=== PATIENT | male | born 1975 | race Two or more races ===

== ENCOUNTER 2020-04-19 15:59 | Emergency (ER) | payer OTHER ==
[~2020-04-19] VITALS: Ht 182.9 cm; Wt 91.2 kg
[2020-04-19 16:20] VITALS: BP 164/95
[2020-04-19] MEDS ORDERED: cefTRIAXone SOD 1,000 MG VL IM ONE (16:45)
[2020-04-19] MEDS ORDERED: ACETAMINOPHEN 500 MG TAB PO ONE (17:30)
== END 2020-04-19 18:27 | disposition home or self-care (01) ==
LOC: ER 15:59
DX: J18.9 Pneumonia, unspecified organism (principal); Z20.822 Contact with and (suspected) exposure to COVID-19
CPT/HCPCS: 71045; 96372; 99283; J0696

== ENCOUNTER 2020-04-25 16:41 | Inpatient (IN) | payer OTHER ==
[~2020-04-25] VITALS: Ht 182.9 cm; Wt 91.7 kg
[2020-04-25 17:30] LABS: Basophils # (auto) 0.1 10 ^3/uL (0-0.2); Eosinophils # (auto) 0.2 10 ^3/uL (0-0.8); Hematocrit 48.2 % (41.0-53.0); Hemoglobin 16.3 g/dL (13.5-17.5); Lymphocytes # (auto) 2.8 10 ^3/uL (0.4-5.4); Lymphocytes % (auto) 25.1 % (10.0-50.0); Mean Corpuscular Hemoglobin 28.4 pg (28.0-32.0); Mean Corpuscular Hgb Conc. 33.8 g/dL (32.0-36.0); Monocytes # (auto) 1.2 10 ^3/uL (0-1.3); Monocytes % (auto) 10.4 % (0.0-12.0); Neutrophils # (auto) 6.9 10 ^3/uL (1.6-8.6); Neutrophils % (auto) 61.5 % (37.0-80.0); Nucleated Red Blood Cells % 0.1 %; Platelet Count (auto) 567 10^3/uL (140-450); Red Blood Cells 5.74 10^6/uL (4.5-5.90); Red Cell Distribution Width 13.7 % (11.8-14.3); White Blood Cell 11.3 10^3/uL (4.4-10.8)
[2020-04-25 17:45] LABS: INR 1.05 (0.9-1.15); Partial Thromboplastin Time 28.3 sec (23.0-31.2)
[2020-04-25 17:50] LABS: Albumin 3.2 g/dL (3.4-5.0); Anion Gap 9 (5-15); Blood Urea Nitrogen 17 mg/dL (7-18); Calcium 8.7 mg/dL (8.5-10.1); Carbon Dioxide 24 mmol/L (21-32); Chloride 104 mmol/L (98-107); Glucose 110 mg/dL (74-106); Potassium 4.1 mmol/L (3.5-5.1); Sodium 137 mmol/L (136-145)
[2020-04-25 17:52] LABS: Alanine Aminotransferase 185 U/L (16-61); Aspartate Aminotransferase 48 U/L (15-37); BUN/Creatinine Ratio 14.3; GFR African American 85 mL/min; GFR Non-African American 71 mL/min
[2020-04-25 17:56] LABS: Alkaline Phosphatase 167 U/L (45-117); Bilirubin, Total 0.5 mg/dL (0.2-1.0); Total Protein 7.6 g/dL (6.4-8.2)
[2020-04-25] MEDS ORDERED: AZITHROMYCIN 500MG/ 250ML 250 ML IV ONE (18:15)
[2020-04-25] MEDS ORDERED: SODIUM CHLORIDE 0.9% 1,000 ML IVB ONE (18:15)
[2020-04-25] MEDS ORDERED: DexAMETHasone SOD PHOS 10MG/1ML VIAL INJ IV ONE (18:15)
[2020-04-25] MEDS ORDERED: TEMAZEPAM 15 MG CAP PO PRN (21:15)
[2020-04-25] MEDS ORDERED: ACETAMINOPHEN 500 MG TAB PO PRN (21:15)
[2020-04-25] MEDS ORDERED: MORPHINE SULF INJ 2 MG/ML SYRINGE 1ML IV PRN (21:15)
[2020-04-25] MEDS ORDERED: cefTRIAXone 1GM/50ML D5W 50 ML IV ONE (21:15)
[2020-04-25] MEDS ORDERED: ONDANSETRON HCL 4 MG/2 ML VIAL IV PRN (21:15)
[2020-04-25] MEDS ORDERED: ALBUTEROL SULF HFA 90MCG INH 200DOSE IN PRN (21:15)
[2020-04-25] MEDS ORDERED: guaiFENesin-DM 100/10mg/5ml SYR PO PRN (21:15)
[2020-04-25] MEDS ORDERED: NITROGLYCERIN 0.4 MG SL TAB SL PRN (21:15)
[2020-04-25] MEDS: FAMOTIDINE 20 MG TAB PO SCH (23:44)
[2020-04-25] MEDS: ENOXAPARIN SOD 40 MG/0.4 ML SYRINGE SC SCH (23:44)
[2020-04-26] VITALS: BP 139/79
[2020-04-26] MEDS ORDERED: REMDESIVIR PER PHARMACY 0 ML IV SCH (00:30)
[2020-04-26 01:44] LABS: CRP High Sensitivity 0.79 mg/dL (< 0.3); Magnesium 2.3 mg/dL (1.6-2.6)
[2020-04-26 06:50] LABS: Basophils # (auto) 0 10 ^3/uL (0-0.2); Eosinophils # (auto) 0 10 ^3/uL (0-0.8); Eosinophils % (auto) 0.1 % (0.0-7.0); Lymphocytes # (auto) 1.7 10 ^3/uL (0.4-5.4); Lymphocytes % (auto) 18.7 % (10.0-50.0); Mean Corpuscular Hemoglobin 28.9 pg (28.0-32.0); Mean Corpuscular Hgb Conc. 34.9 g/dL (32.0-36.0); Monocytes # (auto) 0.5 10 ^3/uL (0-1.3); Neutrophils % (auto) 75.2 % (37.0-80.0); White Blood Cell 9.3 10^3/uL (4.4-10.8)
[2020-04-26 06:53] LABS: Basophils % (auto) 0.2 % (0.0-2.0); Hematocrit 43.1 % (41.0-53.0); Monocytes % (auto) 5.8 % (0.0-12.0); Platelet Count (auto) 541 10^3/uL (140-450); Red Blood Cells 5.19 10^6/uL (4.5-5.90); Red Cell Distribution Width 13.3 % (11.8-14.3)
[2020-04-26 07:07] LABS: Albumin 2.9 g/dL (3.4-5.0); Calcium 8.4 mg/dL (8.5-10.1); Potassium 4.2 mmol/L (3.5-5.1)
[2020-04-26 07:10] LABS: BUN/Creatinine Ratio 17.4; Bilirubin, Total 0.5 mg/dL (0.2-1.0); Total Protein 7.4 g/dL (6.4-8.2)
[2020-04-26 08:00] VITALS: BP 115/74
[2020-04-26] MEDS ORDERED: cefTRIAXone 1GM/50ML D5W 50 ML IV SCH (09:00)
[2020-04-26] MEDS: DexAMETHasone SOD PHOS 10MG/1ML VIAL INJ IV SCH (09:51)
[2020-04-26] MEDS: AZITHROMYCIN 500MG/ 250ML 250 ML IV SCH (09:52)
[2020-04-26] MEDS: ZINC SULFATE 220mg CAP or TAB PO SCH (09:52)
[2020-04-26] MEDS: FAMOTIDINE 20 MG TAB PO SCH ×2 (09:52→21:52)
[2020-04-26] MEDS: CHOLECALCIFEROL (VITD3) 2,000 UNIT CAP/TAB PO SCH (09:53)
[2020-04-26] MEDS: ENOXAPARIN SOD 40 MG/0.4 ML SYRINGE SC SCH ×2 (09:53→21:52)
[2020-04-26] MEDS: ASCORBIC ACID 1,000 MG TAB PO SCH (09:53)
[2020-04-26] MEDS ORDERED: REMDESIVIR 200 MG in NS 210ml LOADING DOSE ADULT IV ONE (15:00)
[2020-04-26 15:43] VITALS: BP 108/78
[2020-04-26] MEDS ORDERED: ERGOCALCIFEROL 50,000 UNIT(1.25MG) CAP PO SCH (15:45)
[2020-04-26] MEDS ORDERED: cefTRIAXone 1GM/50ML D5W 50 ML IV ONE (15:45)
[2020-04-27] VITALS: BP 112/65
[2020-04-27 06:52] LABS: Albumin 2.8 g/dL (3.4-5.0); Calcium 8.5 mg/dL (8.5-10.1); Potassium 4.1 mmol/L (3.5-5.1)
[2020-04-27 06:57] LABS: BUN/Creatinine Ratio 18.5; Bilirubin, Total 0.6 mg/dL (0.2-1.0)
[2020-04-27 08:00] VITALS: BP 104/62
[2020-04-27] MEDS: DexAMETHasone SOD PHOS 10MG/1ML VIAL INJ IV SCH (08:46)
[2020-04-27] MEDS: cefTRIAXone 1GM/50ML D5W 50 ML IV SCH (08:46)
[2020-04-27] MEDS: AZITHROMYCIN 500MG/ 250ML 250 ML IV SCH (08:46)
[2020-04-27] MEDS: FAMOTIDINE 20 MG TAB PO SCH ×2 (08:47→22:00)
[2020-04-27] MEDS: ENOXAPARIN SOD 40 MG/0.4 ML SYRINGE SC SCH ×2 (08:47→22:00)
[2020-04-27] MEDS: ZINC SULFATE 220mg CAP or TAB PO SCH (08:47)
[2020-04-27] MEDS: CHOLECALCIFEROL (VITD3) 2,000 UNIT CAP/TAB PO SCH (08:47)
[2020-04-27] MEDS: ASCORBIC ACID 1,000 MG TAB PO SCH (08:47)
[2020-04-27 15:54] VITALS: BP 108/67
[2020-04-27] MEDS: REMDESIVIR 100mg 100 MG in SODIUM CHL 0.9% 230 ML IV SCH (16:59)
[2020-04-28] VITALS: BP 119/77
[2020-04-28 06:22] LABS: Potassium 3.9 mmol/L (3.5-5.1)
[2020-04-28 06:34] LABS: Albumin 2.7 g/dL (3.4-5.0); BUN/Creatinine Ratio 21.3; Bilirubin, Total 0.4 mg/dL (0.2-1.0); Calcium 8.2 mg/dL (8.5-10.1); Total Protein 6.8 g/dL (6.4-8.2)
[2020-04-28 07:31] VITALS: BP 108/61
[2020-04-28] MEDS: cefTRIAXone 1GM/50ML D5W 50 ML IV SCH (09:46)
[2020-04-28] MEDS: ZINC SULFATE 220mg CAP or TAB PO SCH (09:47)
[2020-04-28] MEDS: DexAMETHasone SOD PHOS 10MG/1ML VIAL INJ IV SCH (09:47)
[2020-04-28] MEDS: FAMOTIDINE 20 MG TAB PO SCH (09:47)
[2020-04-28] MEDS: AZITHROMYCIN 500MG/ 250ML 250 ML IV SCH (09:47)
[2020-04-28] MEDS: CHOLECALCIFEROL (VITD3) 2,000 UNIT CAP/TAB PO SCH (09:48)
[2020-04-28] MEDS: ENOXAPARIN SOD 40 MG/0.4 ML SYRINGE SC SCH (09:48)
[2020-04-28] MEDS: ASCORBIC ACID 1,000 MG TAB PO SCH (09:48)
[2020-04-28] MEDS: REMDESIVIR 100mg 100 MG in SODIUM CHL 0.9% 230 ML IV SCH (15:33)
[2020-04-28 15:42] VITALS: BP 111/56
[2020-04-28 17:49] VITALS: BP 108/61
== END 2020-04-28 19:35 | disposition home or self-care (01) | DRG 871 ==
LOC: ER 16:41 → TELE 21:05 → TELE-WESTW 22:48
PROVIDERS: ADMIT Nurse Practitioner; ATTEND Internal Medicine
PROC: XW033E5 Introduction of Remdesivir Anti-infective into Peripheral Vein, Percutaneous Approach, New Technology Group 5 (ICD-10-PCS; principal; 2020-04-26)
DX: A41.89 Other specified sepsis (principal); U07.1 COVID-19; J12.82 Pneumonia due to coronavirus disease 2019; J96.00 Acute respiratory failure, unspecified whether with hypoxia or hypercapnia; R79.89 Other specified abnormal findings of blood chemistry; R00.2 Palpitations; E55.9 Vitamin D deficiency, unspecified; R73.03 Prediabetes; Z82.49 Family history of ischemic heart disease and other diseases of the circulatory system
CPT/HCPCS: 36415; 71045; 80053; 82306; 82728; 83036; 83605; 83615; 83735; 84443; 84484; 85025; 85379; 85610; 85730; 86141; 87040; 87081; 87426; 94640; 96361; 96365; 96367; 96375; G0378; J0696; J1100